=== PATIENT | female | born 1960 | race American Indian/Alaskan Native ===

== ENCOUNTER 2019-09-08 13:42 | Emergency (ER) | payer MEDICAID ==
--- NOTE | 2019-09-08 14:55 | Emergency Department Report ---
Upper Extremity - [facility] Chief Complaint: Extremity Injury, Upper Stated Complaint: FALL Time Seen by Provider: 09/08/19 14:47 Upper Extremity: Right Shoulder, Right Arm Occurred When: Today Mechanism: Fall Severity: severe Symptoms: Yes Pain with Movement, Yes Limited Range of Movement, No Deformity, No Numbness, No Weakness, No Swelling, No Bruising/Ecchymosis, No Laceration or Abrasion Other History: pt Is a 58-year-old female that presents emergency room with complaints of right arm pain. Patient states is her entire right arm. Patient states the pain is 10 out of 10. Patient states she fell getting off the toilet just prior to arrival patient states pain is worse with movement and better with rest. Patient states that EMS placed her in a sling. Patient states she has a past medical history of diabetes and hypertension hyperlipidemia. Patient states she also had a stroke in the past. Patient denies allergies. ED Review of Systems ROS: Stated complaint: FALL Other details as noted in HPI Comment: All other systems reviewed and negative Constitutional: denies: chills, fever Eyes: denies: eye pain, eye discharge, vision change ENT: denies: ear pain, throat pain Respiratory: denies: cough, shortness of breath, wheezing Cardiovascular: denies: chest pain, palpitations Endocrine: no symptoms reported Gastrointestinal: denies: abdominal pain, nausea, diarrhea Genitourinary: denies: urgency, dysuria, discharge Musculoskeletal: denies: back pain, joint swelling, arthralgia Skin: denies: rash, lesions Neurological: denies: headache, weakness, paresthesias Psychiatric: denies: anxiety, depression Hematological/Lymphatic: denies: easy bleeding, easy bruising ED Past Medical Hx - Past Medical History Previous Medical History?: Yes Hx Hypertension: Yes Hx Diabetes: Yes - Surgical History Past Surgical History?: No - Family History Family history: no significant - Social History Smoking Status: Never Smoker Substance Use Type: None - Medications Home Medications: Home Medications Medication Instructions Recorded Confirmed Last Taken Type Oxycodone HCl/Acetaminophen 1 each PO Q6HR PRN #15 tablet 09/08/19 Unknown Rx [Percocet 7.5/325 mg] Upper Extremity Exam - Exam General: Vital signs noted. No distress. Alert and acting appropriately. Head and Torso: No HEENT Abnormality, No Neck Tenderness, No Chest/Lungs Abnormality, No Abdominal Tenderness, No Back Tenderness Shoulder Exam: Yes Shoulder Tenderness, No Clavicle Tenderness, No Normal Range of Motion in Shoulder, No Shoulder Deformity, No AC Joint Tenderness Arm Exam: Yes Arm/Humerus Tenderness, No Arm Deformity Elbow: Yes Elbow Tenderness, No Normal Range of Motion in Elbow, No Elbow Deformity Forearm: No Forearm Tenderness, No Forearm Deformity, No Pain with Pronation, No Pain with Supination Wrist: Yes Normal ROM in Wrist, No Wrist Tenderness, No Wrist Deformity, No Snuffbox Tenderness, No Pain with Axial Thumb Compression Hand: Yes Normal ROM in Digit(s), No Hand Tenderness, No Hand Deformity, No Digit Tenderness, No Digit(s) Deformity, No Tendon Dysfunction CMS Exam: No Broken Skin, No Normal Distal Pulses, No Normal Capillary Refill, No Normal Distal Sensation ED Course Vital Signs 09/08/19 09/08/19 09/08/19 13:57 14:01 14:13 Temperature 97.8 F Pulse Rate 65 64 63 Respiratory 16 22 19 Rate Blood Pressure 222/78 Blood Pressure 224/68 [Left] O2 Sat by Pulse 96 Oximetry 09/08/19 14:15 Temperature Pulse Rate 67 Respiratory 26 H Rate Blood Pressure 213/71 Blood Pressure [Left] O2 Sat by Pulse Oximetry - Reevaluation(s) Reevaluation #1: That she still having severe pain. Patient given another milligram Dilaudid. 09/08/19 16:07 Reevaluation #2: . Patient Required multiple doses of Dilaudid. splint was placed. See procedure note. Patient tolerated procedure well. 09/08/19 19:25 - Consultations Consultation #1: Orthopedist, Dr. Lizama paged 09/08/19 16:07 I discussed case with Dr. Lizama. Dr. Lizama recommends long-arm splint and discharge in a sling and he will see her in the office. 09/08/19 17:54 - Orthopedic Splinting/Casting Injury #1 Side: right Upper Extremity Injury Location: upper arm Upper Extremity Immobilizer: posterior splint Additional Comments: Patient had a posterior long-arm splint placed. Patient placed in a sling. Patient also swath. Patient's neurovascular intact after splinting. Patient able to move fingers. She has good cap refill. ED Medical Decision Making - Radiology Data Radiology results: report reviewed, image reviewed RIGHT SHOULDER HISTORY: Fall and pain. COMPARISON: 07/12/2008 TECHNIQUE: 1 AP view(s) of the right shoulder obtained. FINDINGS Bones: An oblique displaced fracture of the distal one third of the humerus. The major distal fracture fragment is displaced one shaft width laterally. No callus. Relatively normal alignment at the shoulder. No other fracture. Soft tissues: No significant abnormality. Additional findings: None. IMPRESSION: A displaced traumatic acute closed fracture of the distal one third of the humerus. - Medical Decision Making Is a 58-year-old female that presents emergency room with complaints of right arm pain. Patient had an x-ray done and shows a displaced humeral fracture. Patient was placed in a posterior splint and into a sling. After splint was placed, patient's neurovascular was assessed and is intact. Patient given pain medications. Patient's pain was improved prior to discharge. Patient given oral pain medications for home. Patient given a referral to see Dr. Lizama, orthopedist. Patient stable for discharge. Patient discharged home. - Differential Diagnosis sprain, strain, fracture, contusion. Critical Care Time: Yes Critical care attestation.: If time is entered above; I have spent that time in minutes in the direct care of this critically ill patient, excluding procedure time. Critical Care Time: 35 minutes ED Disposition Clinical Impression: Humeral distal fracture Qualifiers: Encounter type: initial encounter Fracture type: closed Fracture morphology: unspecified fracture morphology Laterality: right Qualified Code(s): S42.401A - Unspecified fracture of lower end of right humerus, initial encounter for closed fracture Upper arm pain Qualifiers: Laterality: right Qualified Code(s): M79.621 - Pain in right upper arm Fall Qualifiers: Encounter type: initial encounter Qualified Code(s): W19.XXXA - Unspecified fall, initial encounter Disposition: - TO HOME OR SELFCARE Is pt being admited?: No Does the pt Need Aspirin: No Condition: Stable Instructions: Arm Fracture in Adults (ED) Additional Instructions: Patient to follow-up with Primary care in 2-3 days. Patient to follow-up with orthopedist within 2 days. Patient to return to ER if condition worsens. Patient to rest. Patient take meds as directed. Patient to keep splint and arm in a sling until cleared by orthopedic. Patient to take Tylenol or ibuprofen when necessary for pain. Prescriptions: Oxycodone HCl/Acetaminophen [Percocet 7.5/325 mg] 1 each PO Q6HR PRN #15 tablet PRN Reason: Pain Referrals: PRIMARY CARE, [Primary Care Provider] - 2-3 Days TAY LIZAMA MD [Staff Physician] - 2-3 Days Time of Disposition: 20:00
[2019-09-08] MEDS ORDERED: HYDROmorphone 1 MG/1 ML INJ IV ONE ×3 (14:56→18:07)
--- NOTE | 2019-09-08 15:46 | XRay Report ---
RIGHT SHOULDER HISTORY: Fall and pain. COMPARISON: 07/12/2008 TECHNIQUE: 1 AP view(s) of the right shoulder obtained. FINDINGS Bones: An oblique displaced fracture of the distal one third of the humerus. The major distal fractur e fragment is displaced one shaft width laterally. No callus. Relatively normal alignment at the [facility]. No other fracture. Soft tissues: No significant abnormality. Additional findings: None. IMPRESSION: A displaced traumatic acute closed fracture of the distal one third of the humerus. Signer Name: Alirio Becerra MD Signed: 09/08/2019 3:42 PM Workstation Name: [id number]
[2019-09-08 20:33] VITALS: BP 142/65
== END 2019-09-08 20:35 | disposition home or self-care (01) ==
LOC: ED 13:42
DX: S42.401A Unspecified fracture of lower end of right humerus, initial encounter for closed fracture (principal); I10 Essential (primary) hypertension; E11.9 Type 2 diabetes mellitus without complications; W18.30XA Fall on same level, unspecified, initial encounter; Y93.89 Activity, other specified; Y92.89 Other specified places as the place of occurrence of the external cause; Y99.8 Other external cause status
CPT/HCPCS: 29105; 73020; 96374; 96376; 99284; J1170